=== PATIENT | female | born 2000 | race Two or more races ===

== ENCOUNTER 2019-03-12 18:29 | Emergency (ER) | payer OTHER ==
[2019-03-12 18:47] VITALS: BP 129/54
[2019-03-12] MEDS ORDERED: CEFPODOXIME 200 MG TABLET PO ONE ×2 (20:47→22:20)
[2019-03-12] MEDS ORDERED: SULFAMETHOXAZOLE/TRIMETHOPRIM 800-160 MG TABLET PO ONE (20:47)
--- NOTE | 2019-03-12 20:52 | ER Document Report ---
HPI - HPI Patient complains to provider of: Right eye redness and swelling Time Seen by Provider: 03/12/19 20:47 Pain Level: 4 Context: Patient is a 18-year-old female presents to the emergency department with redness and irritation to her right under eye. Patient states she feels as though it is burning. States yesterday she noted some generalized redness to her right medial canthi. States the redness has since spread below her right ey e she is continued with pain. Patient's denying any discharge from either eyes. She denies any pain on extraocular motion. Patient states "it hurts where my tear duct is." Patient points to the medial aspect of her right eye when saying this. Patient is denying any history of clogged tear ducts or preseptal or orbital cellulitis. Patient's denying any fevers, change in vision. - REPRODUCTIVE Reproductive: DENIES: : Past Medical History - General Information source: Patient - Social History Smoking Status: Never Smoker Frequency of alcohol use: None Drug Abuse: None Family History: Reviewed & Not Pertinent Patient has suicidal ideation: No Patient has homicidal ideation: No Renal/ Medical History: Denies: Hx Peritoneal Dialysis Past Surgical History: Reports: Hx Tonsillectomy Vertical Provider Document - CONSTITUTIONAL Agree With Documented VS: Yes Notes: GENERAL: Alert, interacts well. No acute distress. HEAD: Normocephalic, atraumatic. EYES: Pupils equal, round, and reactive to light. Extraocular movements intact, and painless. No active discharge from bilateral eyes, no conjunctival injection noted bilaterally. No proptosis noted. Skin under the patient's right eye is noted to be erythematous but nonswollen. No vesicular lesions noted. Patient also has redness noted down to the right nasolabial fold. ENT: Oral mucosa moist, tongue midline. Nares patent, no nasal septal hematoma, TM's intact. NECK: Full range of motion. Supple. Trachea midline. LUNGS: Clear to auscultation bilaterally, no wheezes, rales, or rhonchi. No respiratory distress. HEART: Regular rate and rhythm. No murmur ABDOMEN: Soft, non-tender. Non-distended. Bowel sounds present in all 4 quadrants. EXTREMITIES: Moves all 4 extremities spontaneously. No edema, normal radial and dorsalis pedis pulses bilaterally. No cyanosis. BACK: no cervical, thoracic, lumbar midline tenderness. No saddle anesthesia, normal distal neurovascular exam. NEUROLOGICAL: Alert and oriented x3. Normal speech. cranial nerves II through XII grossly intact PSYCH: Normal affect, normal mood. SKIN: Warm, dry, normal turgor. - INFECTION CONTROL TRAVEL OUTSIDE OF THE [place] IN LAST 30 DAYS: No Course - Re-evaluation Re-evalutation: I discussed with patient at length my suspicion that this could be a clogged or infected tear duct. I have also discussed treating her with prophylactic antibiotics due to the redness and pain rapidly progressing in the last 24 hours. 03/12/19 20:51 According to up-to-date preseptal cellulitis is to be treated with Bactrim plus Cefpodoxime. I discussed with patient at length close return precautions, should she have pain upon extraocular motion or any proptosis. I have also discussed close follow-up with her primary care provider for reassessment of the patient's right eye. Patient voices understanding, stable for discharge. - Vital Signs Vital signs: Temp Pulse Resp BP Pulse Ox 98.0 F 57 L 16 129/54 H 98 03/12/19 18:45 03/12/19 18:45 03/12/19 18:45 03/12/19 18:45 03/12/19 18:45 Discharge - Discharge Clinical Impression: Preseptal cellulitis of right lower eyelid Condition: Stable Disposition: HOME, SELF-CARE Instructions: Cellulitis ([facility]) Additional Instructions: As we discussed you have been seen and treated in the emergency department for a possible infection to your right under eyelid. I am going to treat with 2 different antibiotics. It is very important that you take both of these antibiotics as prescribed. It is also very important that you immediately return to the emergency department should you have any pain upon movement of your right or left eye. Her you have any other concerns. Please follow-up with a primary care provider in the next 24 to 48 hours so that another medical provider can examine your right eye. Do not wear contacts lenses while taking antibiotics. Prescriptions: RX: Cefpodoxime Proxetil [Vantin 200 mg Tablet] 2 tab PO Q12 10 Days tab Sulfamethoxazole/Trimethoprim [Bactrim Ds Tablet] 1 each PO BID 7 Days #14 tablet Forms: Return to Work Referrals: BLU MUNOZ MD [Primary Care Provider] - Follow up as needed
== END 2019-03-12 22:18 | disposition home or self-care (01) ==
LOC: ER 18:29
DX: L03.213 Periorbital cellulitis (principal)
CPT/HCPCS: 99282